=== PATIENT | female | born 1990 | race African-American/Black ===

== ENCOUNTER 2024-11-02 12:21 | Emergency (ER) | payer OTHER ==
[~2024-11-02] VITALS: Ht 175.3 cm; Wt 93.2 kg
[2024-11-02] MEDS ORDERED: DESI13CR2 TOP (12:31)
[2024-11-02] MEDS ORDERED: NITR-67 PO (12:31)
[2024-11-02 13:58] LABS: KETONE, URINE AUTO RFX NEGATIVE (NEGATIVE); MUCUS, URINE RFX SMALL (NEGATIVE); RBC, URINE AUTO RFX 5 /HPF (0-3); SQUAM EPITHELIAL CELL UR AURFX 2 /HPF (0-6)
[2024-11-02 13:59] LABS: LEUKOCYTE ESTERASE UR AUTO RFX 2+ (NEGATIVE); NITRITE, URINE AUTO RFX POSITIVE (NEGATIVE); WBC, URINE AUTO RFX 34 /HPF (0-3)
[2024-11-02 14:45] LABS: Trichomonas vaginalis (AMP) NOT DETECTED (NEGATIVE)
[2024-11-02 15:10] LABS: GC DNA AMPLIFICATION NEGATIVE (NEGATIVE)
[2024-11-02 15:26] LABS: HEPATITIS B SURFACE ANTIBODY POSITIVE (POSITIVE)
[2024-11-02] MEDS ORDERED: VALT1TAB PO (15:46)
[2024-11-02 15:51] LABS: HIV 1&2 SCREEN NEGATIVE (NEGATIVE)
[2024-11-02 15:59] LABS: HEPATITIS C VIRUS ABY INDEX < 0.02 INDEX (<0.8)
[2024-11-02 16:02] VITALS: TEMP 97.7; O2SAT 100
[2024-11-02 16:03] VITALS: BP 150/90
== END 2024-11-02 16:07 | disposition home or self-care (01) ==
LOC: M ED 12:21
DX: N39.0 Urinary tract infection, site not specified (principal); A60.09 Herpesviral infection of other urogenital tract; I10 Essential (primary) hypertension; Z91.013 Allergy to seafood; Z79.2 Long term (current) use of antibiotics; Z79.899 Other long term (current) drug therapy